=== PATIENT | male | born 1970 | race African-American/Black ===

== ENCOUNTER 2023-01-22 16:39 | Emergency (ER) | payer MEDICARE, MEDICAID ==
[~2023-01-22] VITALS: Ht 182.9 cm; Wt 99.0 kg
[2023-01-22 17:15] LABS: BASOPHILS % 0.4 % (0.0-2.0); EOSINOPHILS % 2.2 % (0.0-5.0); HEMOGLOBIN. 14.5 g/dL (14.0-18.0); LYMPHOCYTES % 43.5 % (20.0-50.0); MEAN CORPUSCULAR HEMOGLOBIN 33.2 pg (28.0-32.0); MEAN CORPUSCULAR VOLUME 98.8 fL (80.0-94.0); MEAN PLATELET VOLUME 8.6 fl (7.4-10.4); MONOCYTES % 6.9 % (2.0-8.0); PLATELET 298 x1000/uL (130-400); RED BLOOD CELL COUNT 4.35 mill/uL (4.7-6.1); RED CELL DISTRIBUTION WIDTH 12.7 % (11.6-14.6)
[2023-01-22 17:26] LABS: CHLORIDE 106 mEq/L (98-107)
[2023-01-22 17:36] LABS: ETHANOL BLOOD < 10 mg/dL
[2023-01-22 18:50] VITALS: BP 110/72
[2023-01-22 21:02] LABS: *AMPHETAMINES SCREEN URINE NEGATIVE (NEGATIVE); *BARBITURATES SCREEN URINE NEGATIVE (NEGATIVE); *BENZODIAZEPINES SCREEN URINE NEGATIVE (NEGATIVE); *COCAINE SCREEN URINE NEGATIVE (NEGATIVE); CANNABINOID URINE SCREEN NEGATIVE (NEGATIVE); METHADONE URINE SCREEN NEGATIVE (NEGATIVE); OPIATES URINE SCREEN NEGATIVE (NEGATIVE); PHENCYCLIDINE URINE SCREEN NEGATIVE (NEGATIVE)
== END 2023-01-22 19:39 | disposition home or self-care (01) ==
LOC: ER 16:39
DX: R55 Syncope and collapse (principal); R42 Dizziness and giddiness; I11.0 Hypertensive heart disease with heart failure; I50.9 Heart failure, unspecified; E78.00 Pure hypercholesterolemia, unspecified
CPT/HCPCS: 36415; 71045; 80053; 80305; 80320; 83880; 84484; 85025; 93005; 99285; G0480

== ENCOUNTER 2023-04-26 13:05 | Emergency (ER) | payer MEDICARE, MEDICAID ==
[~2023-04-26] VITALS: Ht 177.8 cm; Wt 91.0 kg
[~2023-04-26 13:05] MED LIST: ASPI-1497 PO; ATOR20TA65 PO; CARV12.545 PO; FURO40TA5 PO; MAGN64TA7 MT; POTA-354 MT; SACU1TAB7 PO; SPIR25TA6 PO
[2023-04-26 13:16] VITALS: BP 152/118; PULSE 71; RESP 17; O2SAT 99
[2023-04-26] MEDS ORDERED: MIDAZOLAM HCL 2 MG/2 ML VIAL ONE (13:47)
[2023-04-26] MEDS ORDERED: MIDAZOLAM HCL 2 MG/2 ML VIAL IV ONE (14:00)
== END 2023-04-26 16:10 ==
LOC: ER 13:05
DX: I46.9 Cardiac arrest, cause unspecified (principal); I11.0 Hypertensive heart disease with heart failure; I50.9 Heart failure, unspecified; E78.00 Pure hypercholesterolemia, unspecified
CPT/HCPCS: 31500; 82962; 99291; J2250